=== PATIENT | female | born 1960 | race Caucasian/White ===

== ENCOUNTER 2018-11-12 18:23 | Emergency (ER) | payer BC ==
[2018-11-12 19:41] VITALS: BP 122/74
[2018-11-12] MEDS ORDERED: Ondansetron ODT TAB* 4 MG PO ONE (19:56)
[2018-11-12] MEDS ORDERED: Acetaminophen TAB* 325 MG PO ONE (19:56)
--- NOTE | 2018-11-12 19:58 | UC ---
Abdominal Pain Female HPI - HPI Summary HPI Summary: 58-year-old woman comes in with a chief complaint of left flank pain and fever. Is also having dysuria. She has a history kidney stones. 4 days ago had sudden onset left flank pain. Reminds her of a kidney stone. 2 days ago she started with some urinary frequency and dysuria. The last day she started with fevers. Overall the patient feels unwell. Nothing relieves the pain. Nor can she make the pain worse. - History of Current Complaint Chief Complaint: UCBackPain Stated Complaint: LOWER BACK PAIN,COUGH,FEVER Time Seen by Provider: 11/12/18 19:49 Pain Intensity: 10 Allergies/Adverse Reactions: Allergies Allergy/AdvReac Type Severity Reaction Status Date / Time MS Ketorolac Tromethamine AdvReac Mild localized Verified 11/12/18 19:41 [From Toradol] skin reaction Home Medications: Home Medications Aspirin/Acetaminophen/Caffeine [Excedrin Extra Strength Caplet] 2 each PO ONCE PRN 11/12/18 [History Confirmed 11/12/18] PMH/Surg Hx/FS Hx/Imm Hx Previously Healthy: Yes - KIDNEY STONES - Surgical History Surgical History: Yes Surgery Procedure, Year, and Place: cholecystectomy, gastric bypass - Family History Known Family History: Positive: Non-Contributory - Social History Alcohol Use: None Substance Use Type: None Smoking Status (MU): Former Smoker When Did the Patient Quit Smoking/Using Tobacco: 20 years ago Review of Systems All Other Systems Reviewed And Are Negative: Yes Constitutional: Positive: Fever, Chills Skin: Positive: Negative Eyes: Positive: Negative ENT: Negative: Sinus Congestion Respiratory: Positive: Negative Cardiovascular: Positive: Negative Gastrointestinal: Positive: Abdominal Pain - SEE HPI, Nausea Genitourinary: Positive: Dysuria, Frequency, Urgency Motor: Positive: Negative Neurovascular: Positive: Negative Musculoskeletal: Positive: Myalgia Neurological: Positive: Negative Psychological: Positive: Negative Is Patient Immunocompromised?: No Physical Exam Triage Information Reviewed: Yes Appearance: Well-Nourished, Ill-Appearing - MILD, Pain Distress - MILD Vital Signs: Initial Vital Signs Temp 103.9 F 11/12/18 19:33 Pulse 89 11/12/18 19:33 Resp 18 11/12/18 19:33 BP 122/74 11/12/18 19:33 Pulse Ox 98 11/12/18 19:33 Vital Signs Reviewed: Yes Eye Exam: Normal Eyes: Positive: Conjunctiva Clear ENT: Negative: Nasal congestion Neck exam: Normal Neck: Positive: Supple Respiratory: Positive: Lungs clear, Normal breath sounds, No respiratory distress Cardiovascular: Positive: RRR Abdomen Description: Positive: Nontender, Soft, CVA Tenderness (L) Bowel Sounds: Positive: Present Musculoskeletal Exam: Normal Musculoskeletal: Positive: Strength Intact, ROM Intact Neurological Exam: Normal Neurological: Positive: Alert, Muscle Tone Normal Psychological Exam: Normal Psychological: Positive: Normal Response To Family, Age Appropriate Behavior Skin Exam: Normal Abd Pain Female Course/Dx - Course Course Of Treatment: With a constellation of sudden onset of severe left flank pain that reminds the patient of a kidney stone and then dysuria and fevers and feeling ill, I am most concerned about pyelonephritis with a kidney stone. I discussed all this with the patient and her . I recommended the go to the emergency department. At this time they feel comfortable going by POV. Patient's blood pressure and heart rate was normal while in clinic. She did get acetaminophen and Zofran here in clinic. - Differential Dx/Diagnosis Provider Diagnosis: Left flank pain, Fever, Pyuria Discharge - Sign-Out/Discharge Documenting (check all that apply): Patient Departure All imaging exams completed and their final reports reviewed: No Studies - Discharge Plan Condition: Stable Disposition: HOME Patient Education Materials: Fever in Adults (ED), Flank Pain (ED) Referrals: Nanette Mayberry [Primary Care Provider] - Additional Instructions: GO DIRECTLY TO THE EMERGENCY DEPARTMENT FOR FURTHER EVALUATION OF YOUR LEFT FLANK PAIN, LEUKOCYTES IN YOUR URINE AND FEVER OF 103. - Billing Disposition and Condition Condition: STABLE Disposition: Home
== END 2018-11-12 20:06 | disposition home or self-care (01) ==
LOC: UCCORT 18:23
DX: R30.0 Dysuria (principal); R50.9 Fever, unspecified; R10.9 Unspecified abdominal pain; M54.5 Low back pain; R39.15 Urgency of urination; R05 Cough; R35.0 Frequency of micturition; Z87.891 Personal history of nicotine dependence; Z87.442 Personal history of urinary calculi; Z88.8 Allergy status to other drugs, medicaments and biological substances
CPT/HCPCS: 81003; 99212; A9270-GY; G0463